=== PATIENT | female | born 1935 | race Caucasian/White ===

== ENCOUNTER 2017-05-31 15:02 | Outpatient (CLI) | payer MEDICARE, BC ==
--- NOTE | 2017-05-31 18:27 | RAD ---
LUMBAR SPINE: 05/31/17 Three views. Lateral views were obtained in flexion and extension and neutral positions. HISTORY: Spinal stenosis. Lumbar pain. Left hip pain. Mild superior end plate compression seen involving the L2 vertebra. There is mild anterior wedging as sociated with this superior end plate decompression. Slight buckling of anterior cortex is seen. This could represent a subacute compression injury. No retropulsion. The other lumbar vertebrae maintain height. There is a mild anterolisthesis at L4-5. There is loss of disc space at L3-4 and L4-5 levels. Prominent facet hypertrophy is seen throughout. No significant change in alignment with flexion and extension. IMPRESSION: 1. Mild compression of L2 vertebra as described. 2. Mild anterolisthesis at L4-5 as described. 3. There are degenerative changes throughout the lumbar spine. POS: OPAL
--- NOTE | 2017-05-31 20:16 | MRI ---
MRI LUMBAR SPINE WITHOUT CONTRAST 05/31/17 Multiplanar and multisequential imaging lumbar spine obtained. HISTORY: Spinal stenosis. Back pain. Radiation to left lower extremity. FINDINGS: There is compression deformity involving the L2 vertebra superior end plate compression. There is a s uperior end plate defect consistent with Schmorl's node with secondary compression of the superior en d plate. This results in loss of central height of L2 and mild anterior wedging. There are anterior o steophytes. The other visualized vertebrae maintain height. There is a slight anterolisthesis at L4-5 . There is no evidence of edema seen within any of the visualized vertebrae on STIR sequence. This wo uld indicate that the compression deformity at L2 is stable and probably chronic. At the L1-2 disc level, there is a broad based disc bulge flattening the thecal sac. Mild facet hyper trophy and these changes result in mild central canal stenosis. At L2-3, minimal disc bulge. Mild to moderate facet hypertrophy. Mild central canal stenosis. At L3-4, diffuse disc bulge. Prominent facet hypertrophy. Moderate central canal stenosis. At L4-5, slight anterolisthesis. Diffuse disc bulge. Facet hypertrophy. Moderate to severe central ca nal stenosis. At L5-S1, no significant disc bulge. Facet arthrosis. No significant central canal or foraminal steno sis. Synovial cysts project posteriorly at L4-5 and do not encroach on the spinal canal. IMPRESSION: 1. Compression deformity at L2 appears stable with no evidence of edema. 2. Disc bulge at L1-2 with mild central canal stenosis. 3. Slight anterolisthesis of L4-5 with diffuse disc bulge resulting in moderate to severe centra l canal stenosis. POS: OPAL
== END 2017-05-31 15:03 | disposition home or self-care (01) ==
LOC: TBSIIMAG 15:02
PROVIDERS: ATTEND Neurological Surgery
DX: M48.061 Spinal stenosis, lumbar region without neurogenic claudication (principal); G95.20 Unspecified cord compression; M43.16 Spondylolisthesis, lumbar region; M47.896 Other spondylosis, lumbar region; M43.8X6 Other specified deforming dorsopathies, lumbar region; M51.26 Other intervertebral disc displacement, lumbar region
CPT/HCPCS: 72100; 72148

== ENCOUNTER 2017-08-31 09:50 | Outpatient (CLI) | payer MEDICARE, BC | END 2017-08-31 09:51 | disposition home or self-care (01) | LOC: BICMAMMO 09:50 | PROVIDERS: ATTEND Internal Medicine | DX: Z12.31 Encounter for screening mammogram for malignant neoplasm of breast (principal); Z80.3 Family history of malignant neoplasm of breast | CPT/HCPCS: 77063; 77067 ==

== ENCOUNTER 2019-04-25 10:44 | Outpatient (CLI) | payer MEDICARE, BC ==
--- NOTE | 2019-04-25 11:31 | MMO ---
Bilateral MAMMO Bilat Screen [facility]. CLINICAL HISTORY: Patient is 83 years old and is seen for screening. The patient has the following family history of breast cancer: mother, at age 75 and maternal aunt, at age 75. The patient has no personal history of cancer. VIEWS: The views performed were: bilateral craniocaudal with tomosynthesis and bilateral mediolateral oblique with tomosynthesis. FILMS COMPARED: The present examination has been compared to prior imaging studies performed at [facility] on 06/05/2014, 06/24/2015, 08/24/2016 and 08/31/2017. This study has been interpreted with the assistance of computer-aided detection. MAMMOGRAM FINDINGS: There are scattered fibroglandular densities. There are stable benign appearing calcifications seen in both breasts. There are also vascular calcifications. There are no suspicious masses, suspicious calcifications, or new areas of architectural distortion. IMPRESSION: THERE IS NO MAMMOGRAPHIC EVIDENCE OF MALIGNANCY. A ROUTINE FOLLOW-UP MAMMOGRAM IN 1 YEAR IS RECOMMENDED. THE RESULTS OF THIS EXAM WERE SENT TO THE PATIENT. ACR BI-RADS Category 2 - Benign finding MAMMOGRAPHY NOTE: 1. A negative mammogram report should not delay a biopsy if a dominant of clinically suspicious mass is present. 2. Approximately 10% to 15% of breast cancers are not detected by mammography. 3. Adenosis and dense breasts may obscure an underlying neoplasm. Reported by: MORTEZA SEGUNDO MD Electonically Signed: [id number]
== END 2019-04-25 10:45 | disposition home or self-care (01) ==
LOC: BICMAMMO 10:44
PROVIDERS: ATTEND Internal Medicine
DX: Z12.31 Encounter for screening mammogram for malignant neoplasm of breast (principal); Z80.3 Family history of malignant neoplasm of breast
CPT/HCPCS: 77063; 77067

== ENCOUNTER 2020-04-28 11:39 | Outpatient (CLI) | payer MEDICARE, BC ==
--- NOTE | 2020-04-28 14:03 | MMO ---
Bilateral MAMMO Bilat Screen [facility]. CLINICAL HISTORY: Patient is 84 years old and is seen for screening. The patient has the following family history of breast cancer: mother, at age 75 and maternal aunt, at age 75. The patient has no personal history of cancer. VIEWS: The views performed were: bilateral craniocaudal with tomosynthesis and bilateral mediolateral oblique with tomosynthesis. FILMS COMPARED: The present examination has been compared to prior imaging studies performed at [facility] on 06/24/2015, 08/24/2016, 08/31/2017 and 04/25/2019. This study has been interpreted with the assistance of computer-aided detection. MAMMOGRAM FINDINGS: There are scattered fibroglandular densities. Benign calcifications are noted bilaterally. There are no suspicious masses, suspicious calcifications, or new areas of architectural distortion. IMPRESSION: THERE IS NO MAMMOGRAPHIC EVIDENCE OF MALIGNANCY. A ROUTINE FOLLOW-UP MAMMOGRAM IN 1 YEAR IS RECOMMENDED. THE RESULTS OF THIS EXAM WERE SENT TO THE PATIENT. ACR BI-RADS Category 2 - Benign finding MAMMOGRAPHY NOTE: 1. A negative mammogram report should not delay a biopsy if a dominant of clinically suspicious mass is present. 2. Approximately 10% to 15% of breast cancers are not detected by mammography. 3. Adenosis and dense breasts may obscure an underlying neoplasm. Reported by: MATILDA ALAS MD Electonically Signed: [id number]
== END 2020-04-28 11:40 | disposition home or self-care (01) ==
LOC: BICMAMMO 11:39
PROVIDERS: ATTEND Internal Medicine
DX: Z12.31 Encounter for screening mammogram for malignant neoplasm of breast (principal); Z80.3 Family history of malignant neoplasm of breast
CPT/HCPCS: 77063; 77067

== ENCOUNTER 2020-12-09 20:51 | Observation (INO) | payer MEDICARE, BC ==
[2020-12-09] MEDS ORDERED: Nitroglycerin 0.4 MG TAB 1 EACH ONE ×2 (21:43→21:44)
[2020-12-09] MEDS ORDERED: hydrALAZINE 20 MG/ML VIAL ONE (21:43)
[2020-12-09] MEDS ORDERED: Nitroglycerin 2% Ointment 1 INCH/1 GM Packet ONE ×2 (21:43→22:54)
[2020-12-09 21:48] LABS: #Basophils 0.1 thou/uL (0.0-0.2); #Monocytes 0.8 thou/uL (0.11-0.59); #Neutrophils 5.1 thou/uL (1.40-6.50); %Basophils 0.7 % (0.0-1.0); %Eosinophils 9.7 % (0.0-10.0); %Lymphocytes 30.2 % (21.0-51.0); %Monocytes 8.3 % (0.0-10.0); %Neutrophils 51.2 % (42.0-75.0); Hemoglobin 13.2 g/dL (12.0-16.0); Mean Corpuscular Hemoglobin 32.4 pg (27.0-31.0); Mean Corpuscular Volume 95.2 fL (78.0-98.0); Mean Platelet Volume 7.5 fL (7.4-10.4); Platelet Count 282 thou/uL (130-400); RBC Distribution Width 12.5 % (11.5-14.5); Red Blood Cell (RBC) Count 4.08 mill/uL (4.20-5.40); White Blood Cell (WBC) Count 9.9 thou/uL (4.8-10.8)
[2020-12-09 21:59] LABS: INR-International Normal Ratio 1.1
[2020-12-09 22:11] LABS: ALT (SGPT) 14 U/L (8-55); AST (SGOT) 18 U/L (5-34); Alkaline Phosphatase 87 U/L (40-110); Anion Gap 16 mmol/L (10-20); BUN (Urea Nitrogen) 16 mg/dL (9.8-20.1); Bilirubin, Total 0.6 mg/dL (0.2-1.2); Calc. Creatinine Clearance 0 mL/min (70-130); Calcium 9.2 mg/dL (7.8-10.44); Carbon Dioxide 21 mmol/L (23-31); Chloride 105 mmol/L (98-107); Globulin 3.2 g/dL (2.4-3.5); Glucose 109 mg/dL (83-110); Potassium 3.6 mmol/L (3.5-5.1); Protein, Total 7.2 g/dL (5.8-8.1); Sodium 138 mmol/L (136-145)
[2020-12-09] MEDS ORDERED: Acetaminophen 500 MG TAB ONE (22:33)
[2020-12-09] MEDS ORDERED: Ondansetron PF 4 MG/2 ML Vial ONE (23:02)
[2020-12-10 01:17] LABS: Troponin I Less than 0.010 ng/mL (< 0.028)
[2020-12-10 02:08] VITALS: BMI 27.1
[2020-12-10] MEDS ORDERED: Acetaminophen 325 MG TAB PO PRN (02:50)
[2020-12-10] MEDS ORDERED: Ondansetron ODT 4 MG TAB PO PRN (02:50)
[2020-12-10] MEDS ORDERED: Ondansetron PF 4 MG/2 ML Vial IVP PRN (02:50)
[2020-12-10 04:33] LABS: #Basophils 0.1 thou/uL (0.0-0.2); #Eosinphils 0.6 thou/uL (0.0-0.7); #Monocytes 0.9 thou/uL (0.11-0.59); #Neutrophils 5.8 thou/uL (1.40-6.50); %Basophils 0.9 % (0.0-1.0); %Eosinophils 5.4 % (0.0-10.0); %Lymphocytes 28.9 % (21.0-51.0); %Monocytes 8.8 % (0.0-10.0); Hemoglobin 12.7 g/dL (12.0-16.0); Mean Corpuscular HGB CONC 33.3 g/dL (32.0-36.0); Mean Corpuscular Hemoglobin 31.7 pg (27.0-31.0); Mean Corpuscular Volume 95.1 fL (78.0-98.0); Mean Platelet Volume 7.5 fL (7.4-10.4); Platelet Count 294 thou/uL (130-400); RBC Distribution Width 12.7 % (11.5-14.5); White Blood Cell (WBC) Count 10.3 thou/uL (4.8-10.8)
[2020-12-10 04:56] LABS: Anion Gap 14 mmol/L (10-20); BUN (Urea Nitrogen) 15 mg/dL (9.8-20.1); Calc. Creatinine Clearance 53 mL/min (70-130); Carbon Dioxide 21 mmol/L (23-31); Chloride 104 mmol/L (98-107); Glucose 112 mg/dL (83-110); Potassium 3.6 mmol/L (3.5-5.1); Sodium 135 mmol/L (136-145)
[2020-12-10 05:01] LABS: Troponin I 0.023 ng/mL (< 0.028)
[2020-12-10] MEDS ORDERED: Nitroglycerin 2% Ointment 1 INCH/1 GM Packet TOP SCH (06:00)
[2020-12-10] MEDS ORDERED: Enoxaparin Sodium 40 MG/0.4 ML SYRINGE SC SCH (09:00)
[2020-12-10] MEDS ORDERED: Amlodipine 5 MG TAB PO SCH (09:00)
[2020-12-10] MEDS ORDERED: Allopurinol 100 MG TAB PO SCH ×2 (10:00→21:00)
[2020-12-10] MEDS ORDERED: Atorvastatin Calcium 40 MG TAB PO SCH (10:15)
[2020-12-10] MEDS ORDERED: Famotidine 20 MG TAB PO SCH ×2 (10:15→21:00)
[2020-12-10 11:28] VITALS: BP 144/64; TEMP 97.5
[2020-12-10] MEDS ORDERED: Aspirin Chewable 81 MG TAB PO SCH (14:30)
[2020-12-11] MEDS ORDERED: Atorvastatin Calcium 40 MG TAB PO SCH (09:00)
== END 2020-12-10 16:05 | disposition home health service (06) ==
LOC: ERS 20:51 → 2SE 22:38
PROVIDERS: ADMIT Student in an Organized Health Care Education/Training Program; ATTEND Student in an Organized Health Care Education/Training Program
DX: I16.1 Hypertensive emergency (principal); G93.40 Encephalopathy, unspecified; I10 Essential (primary) hypertension; M06.9 Rheumatoid arthritis, unspecified; I69.828 Other speech and language deficits following other cerebrovascular disease; Z79.899 Other long term (current) drug therapy
CPT/HCPCS: 36415; 70450; 70551; 80048; 80053; 83880; 84484; 85025; 85610; 85730; 95712; 95819; 95957; 96372; 96374; 96375; G0378; J0360; J1650; J2405

== ENCOUNTER 2021-03-17 14:43 | Emergency (ER) | payer MEDICARE, BC | END 2021-03-17 16:03 | disposition left against medical advice (07) | LOC: ERS 14:43 | DX: Z53.21 Procedure and treatment not carried out due to patient leaving prior to being seen by health care provider (principal) ==

== ENCOUNTER 2021-05-11 09:52 | Inpatient (IN) | payer MEDICARE, BC ==
[2021-05-11] MEDS ORDERED: Cefepime 2 GM VIAL ONE (10:26)
[2021-05-11] MEDS ORDERED: EPINEPHrine 1 MG/ML VIAL ONE (10:26)
[2021-05-11] MEDS ORDERED: diphenhydrAMINE 50 MG/ML VIAL ONE (10:27)
[2021-05-11] MEDS ORDERED: Famotidine/PF 20 mg/2ml Vial ONE (10:27)
[2021-05-11] MEDS ORDERED: methylPREDNISolone Sod Succ/PF 125 MG/2 ML VIAL ONE ×2 (10:27→10:34)
[2021-05-11 10:39] LABS: Bilirubin Negative (Negative); Blood, Urine Negative (Negative); Clarity Clear (Clear); Glucose, Urine (Dipstick) Normal (Negative); Ketone, Urine Negative (Negative); Leukocyte Negative Leu/uL (Negative); Nitrite Negative (Negative); Protein, Urine (Dipstick) 10 mg/dL (Neg-Trace); Specific Gravity, Urine 1.011 (1.002-1.036); Urobilinogen Normal mg/dL (Less than 2); pH, Urine 6.5 (5.0-9.0)
[2021-05-11 10:49] LABS: #Eosinphils 0.2 thou/uL (0.0-0.7); #Lymphocytes 2.4 thou/uL (1.20-3.40); #Monocytes 0.6 thou/uL (0.11-0.59); #Neutrophils 14.4 thou/uL (1.40-6.50); %Basophils 0.1 % (0.0-1.0); %Eosinophils 1.3 % (0.0-10.0); %Lymphocytes 13.8 % (21.0-51.0); %Monocytes 3.2 % (0.0-10.0); %Neutrophils 81.6 % (42.0-75.0); Hemoglobin 14.1 g/dL (12.0-16.0); Mean Corpuscular HGB CONC 33.1 g/dL (32.0-36.0); Mean Corpuscular Volume 96.5 fL (78.0-98.0); Platelet Count 365 thou/uL (130-400); RBC Distribution Width 13.1 % (11.5-14.5); Red Blood Cell (RBC) Count 4.39 mill/uL (4.20-5.40); White Blood Cell (WBC) Count 17.6 thou/uL (4.8-10.8)
[2021-05-11 11:00] LABS: ALT (SGPT) 15 U/L (8-55); AST (SGOT) 18 U/L (5-34); Albumin 3.3 g/dL (3.4-4.8); Alkaline Phosphatase 136 U/L (40-110); Anion Gap 16 mmol/L (10-20); BUN (Urea Nitrogen) 16 mg/dL (9.8-20.1); Bilirubin, Total 0.5 mg/dL (0.2-1.2); Calc. Creatinine Clearance 0 mL/min (70-130); Calcium 8.5 mg/dL (7.8-10.44); Carbon Dioxide 14 mmol/L (23-31); Chloride 109 mmol/L (98-107); Globulin 2.6 g/dL (2.4-3.5); Glucose 195 mg/dL (83-110); Protein, Total 5.9 g/dL (5.8-8.1); Sodium 136 mmol/L (136-145)
[2021-05-11] MEDS ORDERED: Magnesium 2 GM/50 ML BAG (IN WATER) ONE (11:33)
[2021-05-11] MEDS ORDERED: Potassium Chloride 20 MEQ TAB ONE (11:33)
[2021-05-11] MEDS ORDERED: Metoclopramide HCl 10 MG/2 ML VIAL ONE (11:36)
[2021-05-11] MEDS ORDERED: Vancomycin 1.5 GRAM/300 ML BAG 1.5 GM in Premix Bag 1 BAG IVPB SCH (11:45)
[2021-05-11] MEDS ORDERED: Potassium Bicarbonate/Cit Ac 20 MEQ TAB PO SCH (12:15)
[2021-05-11] MEDS ORDERED: Senokot S 8.6-50 MG TAB PO PRN (13:07)
[2021-05-11] MEDS ORDERED: Acetaminophen 325 MG TAB PO PRN (13:07)
[2021-05-11] MEDS ORDERED: Enoxaparin Sodium 40 MG/0.4 ML SYRINGE SC SCH (13:15)
[2021-05-11] MEDS ORDERED: Electrolyte Replacement Protocol 1 EACH FS SCH (13:15)
[2021-05-11] MEDS ORDERED: Sodium Chloride 0.9% 1,000 ML IV SCH (13:15)
[2021-05-11 13:59] LABS: Magnesium 1.9 mg/dL (1.6-2.6)
[2021-05-11] MEDS ORDERED: Electrolyte Replacement Protocol FS PRN (14:00)
[2021-05-11 14:04] LABS: Troponin I Less than 0.010 ng/mL (< 0.028)
[2021-05-11 14:52] VITALS: BMI 26.4
[2021-05-11 16:48] LABS: Troponin I Less than 0.010 ng/mL (< 0.028)
[2021-05-11] MEDS: methylPREDNISolone Sod Succ 40 MG VIAL IVP SCH (18:34)
[2021-05-11] MEDS: diphenhydrAMINE 25 MG CAP PO SCH (18:34)
[2021-05-11 21:06] LABS: Lactic Acid 4.2 mmol/L (0.5-2.2)
[2021-05-11] MEDS: Famotidine/PF 20 mg/2ml Vial SLOW IVP SCH (21:25)
[2021-05-11] MEDS ORDERED: Sodium Chloride 0.9% 500 ML IV SCH ×2 (21:45→22:15)
[2021-05-11] MEDS: Sodium Chloride 0.9% 1,000 ML IV SCH (22:03)
[2021-05-11] MEDS: Cefepime 2 GM in Sodium Chloride 0.9% 100 ML IVPB SCH (22:03)
[2021-05-12] MEDS: methylPREDNISolone Sod Succ 40 MG VIAL IVP SCH (01:43)
[2021-05-12] MEDS: diphenhydrAMINE 25 MG CAP PO SCH ×3 (01:43→18:01)
[2021-05-12 05:03] LABS: #Lymphocytes 1.5 thou/uL (1.20-3.40); #Monocytes 0.3 thou/uL (0.11-0.59); #Neutrophils 17.3 thou/uL (1.40-6.50); %Basophils 0.1 % (0.0-1.0); %Eosinophils 0.1 % (0.0-10.0); %Lymphocytes 8.1 % (21.0-51.0); %Monocytes 1.5 % (0.0-10.0); %Neutrophils 90.2 % (42.0-75.0); Hemoglobin 10.7 g/dL (12.0-16.0); Mean Corpuscular HGB CONC 33.5 g/dL (32.0-36.0); Mean Corpuscular Hemoglobin 32.4 pg (27.0-31.0); Mean Corpuscular Volume 96.7 fL (78.0-98.0); Mean Platelet Volume 7.9 fL (7.4-10.4); Platelet Count 283 thou/uL (130-400); RBC Distribution Width 13.1 % (11.5-14.5); Red Blood Cell (RBC) Count 3.29 mill/uL (4.20-5.40); White Blood Cell (WBC) Count 19.1 thou/uL (4.8-10.8)
[2021-05-12 05:12] LABS: Anion Gap 12 mmol/L (10-20); BUN (Urea Nitrogen) 17 mg/dL (9.8-20.1); Calc. Creatinine Clearance 48 mL/min (70-130); Carbon Dioxide 18 mmol/L (23-31); Chloride 112 mmol/L (98-107); Glucose 149 mg/dL (83-110); Magnesium 1.7 mg/dL (1.6-2.6); Potassium 3.8 mmol/L (3.5-5.1); Sodium 138 mmol/L (136-145)
[2021-05-12] MEDS: Famotidine/PF 20 mg/2ml Vial SLOW IVP SCH (10:20)
[2021-05-12] MEDS: Aspirin 325 MG TAB PO SCH (10:20)
[2021-05-12] MEDS: Enoxaparin Sodium 40 MG/0.4 ML SYRINGE SC SCH (10:21)
[2021-05-12] MEDS: Cefepime 2 GM in Sodium Chloride 0.9% 100 ML IVPB SCH (10:34)
[2021-05-12] MEDS ORDERED: Vancomycin 1 GM in Premix Bag 1 BAG IVPB SCH ×2 (12:00→13:15)
[2021-05-12] MEDS: Sodium Chloride 0.9% 1,000 ML IV SCH (16:19)
[2021-05-12 21:08] LABS: SARS-CoV-2 PCR by NAA Not Detected (NotDetected)
[2021-05-13] MEDS: Cefepime 2 GM in Sodium Chloride 0.9% 100 ML IVPB SCH ×2 (00:29→12:10)
[2021-05-13] MEDS: diphenhydrAMINE 25 MG CAP PO SCH ×2 (04:56→10:08)
[2021-05-13 05:04] LABS: #Eosinphils 0.1 thou/uL (0.0-0.7); #Lymphocytes 1.7 thou/uL (1.20-3.40); #Neutrophils 14.2 thou/uL (1.40-6.50); %Basophils 0.2 % (0.0-1.0); %Eosinophils 0.4 % (0.0-10.0); %Monocytes 5.7 % (0.0-10.0); %Neutrophils 83.7 % (42.0-75.0); Hemoglobin 10.6 g/dL (12.0-16.0); Mean Corpuscular HGB CONC 34.1 g/dL (32.0-36.0); Mean Corpuscular Hemoglobin 32.8 pg (27.0-31.0); Mean Corpuscular Volume 96.2 fL (78.0-98.0); Mean Platelet Volume 7.9 fL (7.4-10.4); Platelet Count 276 thou/uL (130-400); RBC Distribution Width 13.3 % (11.5-14.5); Red Blood Cell (RBC) Count 3.24 mill/uL (4.20-5.40)
[2021-05-13 05:27] LABS: Anion Gap 10 mmol/L (10-20); BUN (Urea Nitrogen) 20 mg/dL (9.8-20.1); Calc. Creatinine Clearance 44 mL/min (70-130); Calcium 8.1 mg/dL (7.8-10.44); Carbon Dioxide 19 mmol/L (23-31); Chloride 113 mmol/L (98-107); Glucose 123 mg/dL (83-110); Magnesium 1.7 mg/dL (1.6-2.6); Potassium 3.3 mmol/L (3.5-5.1); Sodium 139 mmol/L (136-145)
[2021-05-13] MEDS ORDERED: Magnesium 2 GM/50 ML 2 GM in Premix Bag 1 BAG IVPB SCH (07:15)
[2021-05-13] MEDS ORDERED: Potassium Chloride 20 MEQ TAB PO SCH ×2 (07:15→10:30)
[2021-05-13] MEDS: Aspirin 325 MG TAB PO SCH (08:56)
[2021-05-13] MEDS: Enoxaparin Sodium 40 MG/0.4 ML SYRINGE SC SCH (08:56)
[2021-05-13] MEDS ORDERED: Famotidine/PF 20 mg/2ml Vial SLOW IVP SCH (09:00)
[2021-05-13] MEDS: Sodium Chloride 0.9% 1,000 ML IV SCH (10:08)
[2021-05-13 12:41] VITALS: BP 148/67; TEMP 96.8
== END 2021-05-13 12:15 | disposition home or self-care (01) | DRG 872 ==
LOC: ERS 09:52 → 2NO 14:17
PROVIDERS: ADMIT Internal Medicine; ATTEND Family Medicine
PROC: 3E033XZ Introduction of Vasopressor into Peripheral Vein, Percutaneous Approach (ICD-10-PCS; principal; 2021-05-11)
DX: A41.9 Sepsis, unspecified organism (principal); T78.2XXA Anaphylactic shock, unspecified, initial encounter; Z20.822 Contact with and (suspected) exposure to COVID-19; E87.2 Acidosis; E87.6 Hypokalemia; R13.10 Dysphagia, unspecified; I10 Essential (primary) hypertension; M06.9 Rheumatoid arthritis, unspecified; I69.991 Dysphagia following unspecified cerebrovascular disease; Z87.440 Personal history of urinary (tract) infections; Z79.82 Long term (current) use of aspirin; Z79.899 Other long term (current) drug therapy; Z91.81 History of falling; Z90.710 Acquired absence of both cervix and uterus; R65.20 Severe sepsis without septic shock
CPT/HCPCS: 36415; 51701; 70450; 71045; 72125; 80048; 80053; 81003; 83605; 83735; 84443; 84484; 85025; 87040; 87086; 93005; 96365; 96366; 96367; 96368; 96372; 96375; J0171; J0692; J1200; J1650; J2765; J2920; J2930; J3370; J3475; J3490; J7050; S0028; U0003; U0005

== ENCOUNTER 2021-05-18 13:14 | Outpatient (CLI) | payer MEDICARE, BC | END 2021-05-18 13:15 | disposition home or self-care (01) | LOC: BICMAMMO 13:14 | PROVIDERS: ATTEND Internal Medicine | DX: Z12.31 Encounter for screening mammogram for malignant neoplasm of breast (principal); Z80.3 Family history of malignant neoplasm of breast | CPT/HCPCS: 77063; 77067 ==

== ENCOUNTER 2021-10-18 10:57 | Inpatient (IN) | payer MEDICARE, BC ==
[2021-10-18 11:42] LABS: #Eosinphils 0.3 thou/uL (0.0-0.7); #Monocytes 0.7 thou/uL (0.11-0.59); #Neutrophils 5.3 thou/uL (1.40-6.50); %Basophils 0.1 % (0.0-1.0); %Eosinophils 3.7 % (0.0-10.0); %Lymphocytes 23.7 % (21.0-51.0); %Monocytes 8.5 % (0.0-10.0); Hemoglobin 13.4 g/dL (12.0-16.0); Mean Corpuscular HGB CONC 32.4 g/dL (32.0-36.0); Mean Corpuscular Volume 92.5 fL (78.0-98.0); Mean Platelet Volume 7.8 fL (7.4-10.4); Platelet Count 254 thou/uL (130-400); RBC Distribution Width 12.9 % (11.5-14.5); Red Blood Cell (RBC) Count 4.46 mill/uL (4.20-5.40); White Blood Cell (WBC) Count 8.3 thou/uL (4.8-10.8)
[2021-10-18 12:03] LABS: ALT (SGPT) 12 U/L (8-55); AST (SGOT) 16 U/L (5-34); Albumin 3.9 g/dL (3.4-4.8); Alkaline Phosphatase 118 U/L (40-110); Anion Gap 15 mmol/L (10-20); BUN (Urea Nitrogen) 15 mg/dL (9.8-20.1); Bilirubin, Total 0.5 mg/dL (0.2-1.2); Calc. Creatinine Clearance 0 mL/min (70-130); Calcium 8.8 mg/dL (7.8-10.44); Carbon Dioxide 20 mmol/L (23-31); Chloride 107 mmol/L (98-107); Globulin 2.6 g/dL (2.4-3.5); Glucose 113 mg/dL (83-110); Potassium 3.4 mmol/L (3.5-5.1); Protein, Total 6.5 g/dL (5.8-8.1); Sodium 139 mmol/L (136-145)
[2021-10-18] MEDS ORDERED: Boostrix 0.5 ML (Tdap) VIAL ONE (12:35)
[2021-10-18] MEDS ORDERED: Promethazine HCl 25 MG/ML VIAL IM PRN (13:05)
[2021-10-18] MEDS ORDERED: hydrALAZINE 20 MG/ML VIAL SLOW IVP PRN (13:05)
[2021-10-18] MEDS ORDERED: Ondansetron PF 4 MG/2 ML Vial IVP PRN (13:05)
[2021-10-18] MEDS ORDERED: Cyclobenzaprine 10 MG TAB PO PRN (13:12)
[2021-10-18] MEDS ORDERED: Acetaminophen 500 MG TAB PO PRN (13:12)
[2021-10-18] MEDS ORDERED: traMADol HCl 50 MG TAB PO PRN (13:12)
[2021-10-18] MEDS ORDERED: Sodium Chloride 0.9% 1,000 ML IV SCH (13:15)
[2021-10-18 15:22] LABS: SARS-CoV-2 NAA Rapid Test Not Detected (NotDetected)
[2021-10-18 15:24] VITALS: BMI 24.5
[2021-10-18] MEDS: traMADol HCl 50 MG TAB PO SCH ×2 (16:23→23:35)
[2021-10-18] MEDS: Hydroxychloroquine Sulfate 200 MG TAB PO SCH (16:24)
[2021-10-18] MEDS ORDERED: Potassium Phosphate 30 MMOL in Sodium Chloride 0.9% 250 ML 250 ML IVPB SCH (18:00)
[2021-10-18] MEDS: Senokot S 8.6-50 MG TAB PO SCH (20:02)
[2021-10-18] MEDS ORDERED: Atorvastatin Calcium 40 MG TAB PO SCH (21:00)
[2021-10-19] MEDS: Hydroxychloroquine Sulfate 200 MG TAB PO SCH (06:11)
[2021-10-19] MEDS: traMADol HCl 50 MG TAB PO SCH ×2 (06:11→11:55)
[2021-10-19 06:12] LABS: #Eosinphils 0.2 thou/uL (0.0-0.7); #Lymphocytes 2.3 thou/uL (1.20-3.40); #Monocytes 1.1 thou/uL (0.11-0.59); #Neutrophils 5.9 thou/uL (1.40-6.50); %Basophils 0.2 % (0.0-1.0); %Eosinophils 2.4 % (0.0-10.0); %Lymphocytes 24.5 % (21.0-51.0); Mean Corpuscular Hemoglobin 30.4 pg (27.0-31.0); Mean Corpuscular Volume 92.2 fL (78.0-98.0); Mean Platelet Volume 8.1 fL (7.4-10.4); Platelet Count 245 thou/uL (130-400); RBC Distribution Width 12.9 % (11.5-14.5); Red Blood Cell (RBC) Count 3.94 mill/uL (4.20-5.40); White Blood Cell (WBC) Count 9.5 thou/uL (4.8-10.8)
[2021-10-19 06:35] LABS: Phosphorus 4.9 mg/dL (2.3-4.7)
[2021-10-19 06:38] LABS: Anion Gap 15 mmol/L (10-20); BUN (Urea Nitrogen) 14 mg/dL (9.8-20.1); Calc. Creatinine Clearance 49 mL/min (70-130); Calcium 8.3 mg/dL (7.8-10.44); Carbon Dioxide 22 mmol/L (23-31); Chloride 104 mmol/L (98-107); Glucose 121 mg/dL (83-110); Magnesium 1.5 mg/dL (1.6-2.6); Potassium 3.8 mmol/L (3.5-5.1); Sodium 137 mmol/L (136-145)
[2021-10-19] MEDS ORDERED: Magnesium 2 GM/50 ML(in water) 3 GM in Premix Bag 1 BAG IVPB SCH (07:00)
[2021-10-19] MEDS ORDERED: Magnesium Sulfate 3 GM, Admixture Fee 1 EACH in Sodium Chloride 0.9% 100 ML IVPB SCH (08:00)
[2021-10-19] MEDS: Senokot S 8.6-50 MG TAB PO SCH (08:40)
[2021-10-19] MEDS ORDERED: Aspirin 325 MG TAB PO SCH (09:00)
[2021-10-19] MEDS ORDERED: Montelukast Sodium 10 mg Tablet PO SCH (09:00)
[2021-10-19] MEDS ORDERED: Polyethylene Glycol 3350 17 GM Packet PO SCH (09:00)
[2021-10-19 11:33] VITALS: BP 119/68; TEMP 97.6
[2021-10-20] MEDS ORDERED: Amitriptyline HCl 10 MG TAB PO SCH (09:00)
[2021-10-20] MEDS ORDERED: Enoxaparin Sodium 40 MG/0.4 ML SYRINGE SC SCH (09:00)
== END 2021-10-19 15:20 | disposition home or self-care (01) | DRG 536 ==
LOC: ERS 10:57 → SURG A 13:05
PROVIDERS: ADMIT Surgery; ATTEND Surgery
DX: S72.001A Fracture of unspecified part of neck of right femur, initial encounter for closed fracture (principal); Z20.822 Contact with and (suspected) exposure to COVID-19; I10 Essential (primary) hypertension; E78.5 Hyperlipidemia, unspecified; M06.9 Rheumatoid arthritis, unspecified; R13.10 Dysphagia, unspecified; W18.30XA Fall on same level, unspecified, initial encounter; Z90.710 Acquired absence of both cervix and uterus; Z79.82 Long term (current) use of aspirin; Z79.899 Other long term (current) drug therapy; I69.991 Dysphagia following unspecified cerebrovascular disease
CPT/HCPCS: 36415; 70450; 72125; 80048; 80053; 83735; 84100; 85025; 90471; 90715; G0390; J3475; J3490; J7050; U0002

== ENCOUNTER 2021-11-26 23:35 | Emergency (ER) | payer MEDICARE, BC ==
[2021-11-27] MEDS ORDERED: methylPREDNISolone Sod Succ/PF 125 MG/2 ML VIAL ONE (00:41)
[2021-11-27] MEDS ORDERED: Famotidine 20 MG TAB ONE (00:44)
[2021-11-27 02:45] LABS: Bacteria/HPF None Seen HPF (None Seen); Bilirubin Negative (Negative); Blood, Urine Negative (Negative); Clarity Clear (Clear); Glucose, Urine (Dipstick) Normal (Negative); Ketone, Urine Negative (Negative); Leukocyte 75 Leu/uL (Negative); Nitrite Negative (Negative); Protein, Urine (Dipstick) 10 mg/dL (Neg-Trace); RBC/HPF 0-3 HPF (0-3); Renal Epithelial 0-3 HPF (None Seen); Specific Gravity, Urine 1.011 (1.002-1.036); Squamous Epithelial 0-3 HPF (0-3); Urobilinogen Normal mg/dL (Less than 2); WBC/HPF 0-3 HPF (0-3)
== END 2021-11-27 02:25 | disposition home or self-care (01) ==
LOC: ERS 23:35
DX: T50.995A Adverse effect of other drugs, medicaments and biological substances, initial encounter (principal); I10 Essential (primary) hypertension; Z86.73 Personal history of transient ischemic attack (TIA), and cerebral infarction without residual deficits; Z79.82 Long term (current) use of aspirin; Z79.899 Other long term (current) drug therapy
CPT/HCPCS: 81003; 81015; 96374; J2930

== ENCOUNTER 2021-12-08 10:12 | Outpatient (CLI) | payer MEDICARE, BC | END 2021-12-08 10:13 | disposition home or self-care (01) | LOC: BICMAMMO 10:12 | PROVIDERS: ATTEND Internal Medicine Rheumatology | DX: Z13.820 Encounter for screening for osteoporosis (principal); Z78.0 Asymptomatic menopausal state; M81.0 Age-related osteoporosis without current pathological fracture; M85.852 Other specified disorders of bone density and structure, left thigh | CPT/HCPCS: 77080 ==

== ENCOUNTER 2022-09-12 12:19 | Outpatient (CLI) | payer MEDICARE, BC ==
[~2022-09-12 12:19] MED LIST: Iopamidol 370 76% 100 ML VIAL ONE
== END 2022-09-12 12:20 | disposition home or self-care (01) ==
LOC: BICCT 12:19
PROVIDERS: ATTEND Family Medicine
DX: I77.1 Stricture of artery (principal)
CPT/HCPCS: 70498; Q9967

== ENCOUNTER 2023-08-17 13:33 | Emergency (ER) | payer MEDICARE, BC ==
[2023-08-17 14:21] LABS: #Eosinphils 0.2 thou/uL (0.0-0.7); #Monocytes 0.7 thou/uL (0.11-0.59); #Neutrophils 6.8 thou/uL (1.40-6.50); %Basophils 0.4 % (0.0-1.0); %Eosinophils 1.9 % (0.0-10.0); %Lymphocytes 20.9 % (21.0-51.0); %Monocytes 6.6 % (0.0-10.0); %Neutrophils 69.1 % (42.0-75.0); Hematocrit 44.2 % (36.0-47.0); Hemoglobin 13.9 g/dL (12.0-16.0); Mean Corpuscular HGB CONC 31.4 g/dL (32.0-36.0); Mean Corpuscular Hemoglobin 30.1 pg (27.0-31.0); Mean Corpuscular Volume 95.7 fl (78.0-98.0); Mean Platelet Volume 10.4 fL (7.4-10.4); Platelet Count 195 10x3/uL (130-400); RBC Distribution Width 13.6 % (11.5-14.5); Red Blood Cell (RBC) Count 4.62 mill/uL (4.20-5.40); White Blood Cell (WBC) Count 9.8 10x3/uL (4.8-10.8)
[2023-08-17 14:42] LABS: ALT (SGPT) 11 U/L (8-55); AST (SGOT) 19 U/L (5-34); Alkaline Phosphatase 86 U/L (40-110); Anion Gap 18 mmol/L (10-20); BUN (Urea Nitrogen) 19 mg/dL (9.8-20.1); Bilirubin, Total 0.4 mg/dL (0.2-1.2); Calc. Creatinine Clearance 0 mL/min (70-130); Calcium 8.4 mg/dL (7.8-10.44); Carbon Dioxide 17 mmol/L (23-31); Chloride 108 mmol/L (98-107); Estimated GFR 48; Globulin 2.7 g/dL (2.4-3.5); Glucose 100 mg/dL (83-110); Potassium 4.2 mmol/L (3.5-5.1); Protein, Total 6.7 g/dL (5.8-8.1); Sodium 139 mmol/L (136-145)
[2023-08-17 14:43] LABS: Troponin I Less than 0.010 ng/mL (< 0.028)
[2023-08-17] MEDS ORDERED: Acetaminophen 500 MG TAB ONE (15:07)
[2023-08-17] MEDS ORDERED: traMADol HCl 50 MG TAB ONE (15:08)
== END 2023-08-17 15:25 | disposition home or self-care (01) ==
LOC: ERS 13:33
DX: S32.512A Fracture of superior rim of left pubis, initial encounter for closed fracture (principal); S32.592A Other specified fracture of left pubis, initial encounter for closed fracture; I10 Essential (primary) hypertension; Z79.82 Long term (current) use of aspirin; W01.198A Fall on same level from slipping, tripping and stumbling with subsequent striking against other object, initial encounter
CPT/HCPCS: 36416; 70450; 72125; 72170; 72192; 80053; 84484; 85025; 93005; 94760

== ENCOUNTER 2024-01-03 09:36 | Outpatient (CLI) | payer MEDICARE, BC | END 2024-01-03 09:37 | disposition home or self-care (01) | LOC: BICMAMMO 09:36 | PROVIDERS: ATTEND Nurse Practitioner Family | DX: Z12.31 Encounter for screening mammogram for malignant neoplasm of breast (principal); Z13.820 Encounter for screening for osteoporosis; M81.0 Age-related osteoporosis without current pathological fracture; Z78.0 Asymptomatic menopausal state; Z80.3 Family history of malignant neoplasm of breast | CPT/HCPCS: 77063; 77067; 77080 ==